=== PATIENT | male | born 1935 | race Caucasian/White ===

== ENCOUNTER 2017-05-10 14:22 | Inpatient (IN) | payer MEDICARE ==
[~2017-05-10] VITALS: Ht 170.2 cm; Wt 80.2 kg
[2017-05-10] MEDS ORDERED: ASPIRIN 325 MG TABLET ONE (14:59)
[2017-05-10] MEDS ORDERED: FUROSEMIDE 10 MG/ML 4ML VIAL ONE (15:00)
[2017-05-10 15:16] LABS: BASOPHILS % (AUTO) 0.4 % (0.0-5.0); EOSINOPHILS % (AUTO) 7.6 % (0.0-8.0); HEMATOCRIT 34.8 % (42-54); LYMPHOCYTES % (AUTO) 12.6 % (21.0-51.0); MEAN CORPUSCULAR HEMOGLOBIN 30.6 pg (27.0-33.0); MEAN CORPUSCULAR HGB CONC 33.5 g/dL (32.0-36.0); MEAN CORPUSCULAR VOLUME 91.1 fL (79-99); MONOCYTES % (AUTO) 4.1 % (3.0-13.0); NEUTROPHILS % (AUTO) 75.3 % (40.0-77.0); PLATELET COUNT (AUTO) 221 K/uL (130-400); RED BLOOD CELL COUNT(AUTO) 3.82 MIL/uL (4.50-6.20); RED CELL DISTRIBUTION WIDTH 14.2 % (11.0-15.5); WHITE BLOOD COUNT (AUTO) 12.3 K/uL (4.8-10.8)
[2017-05-10 15:31] LABS: POTASSIUM 4.9 mmol/L (3.5-5.1)
[2017-05-10 15:32] LABS: INR 1.07 (0.85-1.15); PARTIAL THROMBOPLASTIN TIME 28.9 SEC (26.3-35.5); PROTHROMBIN TIME 11.2 SEC (9.6-11.6)
[2017-05-10 15:40] LABS: B-TYPE NATRIURETIC PEPTIDE 1220 pg/mL (0-100)
[2017-05-10 15:49] LABS: ALBUMIN 3.5 g/dL (3.5-5.0); BILIRUBIN,TOTAL 0.9 mg/dL (0.2-1.0); CREATINE KINASE MB 1.7 ng/mL (0.5-3.6); TOTAL PROTEIN, SERUM 7.2 g/dL (6.0-8.3)
[2017-05-10] MEDS ORDERED: INSULIN HUMULIN R 100 UNIT/ML 3ML ONE (16:16)
[2017-05-10 17:12] LABS: ABG BASE EXCESS 1.6 mmol/L (-2.0-3.0); ABG HCO3 25.7 mmol/L (21.0-28.0); ABG OXYGEN SATURATION 96.5 % (95.0-99.0); ABG PCO2 39 mmHg (35-48)
[2017-05-10 21:00] VITALS: BP 151/105
[2017-05-10 23:00] VITALS: BP 150/109
[2017-05-10] MEDS ORDERED: NITROGLYCERIN 0.4 MG SL TAB SL PRN (23:00)
[2017-05-10] MEDS ORDERED: ACETAMINOPHEN 325 MG TAB PO PRN ×2 (23:00)
[2017-05-10] MEDS ORDERED: ONDANSETRON HCL 4 MG/2 ML VIAL IV PRN (23:00)
[2017-05-10] MEDS ORDERED: LACTULOSE 20 GM/30 ML UDCUP PO PRN (23:00)
[2017-05-10] MEDS ORDERED: CEFTRIAXONE 1GM/D5W 50ML 50 ML IV SCH (23:00)
[2017-05-10] MEDS ORDERED: DEXTROSE 50%-WATER 50 ML DISP.SYRIN IV PRN (23:00)
[2017-05-10] MEDS ORDERED: DILTIAZEM 125MG+100 ML NS 125 ML IV SCH (23:00)
[2017-05-10] MEDS ORDERED: GLUCAGON 1MG KIT 1 MG ML IM PRN (23:00)
[2017-05-10] MEDS ORDERED: HYDRALAZINE HCL 20 MG/ML VIAL IV PRN (23:00)
[2017-05-10] MEDS: DILTIAZEM HCL 5 MG/ML 5 ML VIAL IVP SCH (23:00)
[2017-05-10] MEDS ORDERED: GUAIFENESIN-DM 200/20 MG 10 ML PO PRN (23:00)
[2017-05-10] MEDS ORDERED: CEFTRIAXONE SODIUM 1 GM ONE (23:27)
[2017-05-10 23:48] LABS: CREATINE KINASE MB 1.3 ng/mL (0.5-3.6); TROPONIN I 0.04 ng/mL (0.00-0.06)
[2017-05-10] MEDS ORDERED: AZITHROMYCIN 500MG+NS 250ML 250 ML IV ONE (23:54)
[2017-05-11] MEDS: NITROGLYCERIN 1GM/1 INCH PACKET TD SCH ×4 (01:28→23:48)
[2017-05-11 03:00] VITALS: BP 139/71
[2017-05-11 04:25] LABS: CREATINE KINASE MB 1.4 ng/mL (0.5-3.6); CREATINE KINASE, TOTAL 42 U/L (21-232); MYOGLOBIN 115 ng/mL (10-92); TROPONIN I < 0.04 ng/mL (0.00-0.06)
[2017-05-11] MEDS: INSULIN HUMULIN R 100 UNIT/ML 3ML SQ SCH ×4 (06:39→19:09)
[2017-05-11] MEDS: IPRATROPIUM/ALBUTEROL SULFATE 3 ML SOLUTION IH SCH ×3 (06:51→18:44)
[2017-05-11 07:52] VITALS: BP 127/94
[2017-05-11] MEDS ORDERED: ASPIRIN 325 MG TABLET PO SCH (09:00)
[2017-05-11] MEDS ORDERED: ENOXAPARIN SODIUM 30 MG/0.3 ML SQ SCH (09:00)
[2017-05-11] MEDS ORDERED: FUROSEMIDE 10 MG/ML 4ML VIAL IVP SCH (09:00)
[2017-05-11] MEDS ORDERED: ASPI-555 PO (09:37)
[2017-05-11] MEDS ORDERED: TRAM50TA4 PO (09:37)
[2017-05-11] MEDS ORDERED: SIMV10TA6 PO (09:37)
[2017-05-11] MEDS ORDERED: CLON0.5T4 PO (09:37)
[2017-05-11] MEDS ORDERED: TEMA15CA PO (09:37)
[2017-05-11] MEDS ORDERED: APIX2.5T PO (09:37)
[2017-05-11] MEDS ORDERED: FURO40TA7 PO (09:37)
[2017-05-11] MEDS ORDERED: CETI-101 PO (09:37)
[2017-05-11] MEDS ORDERED: INSLAN SQ ×2 (09:37)
[2017-05-11] MEDS ORDERED: CALC0.253 PO (09:37)
[2017-05-11] MEDS ORDERED: CARV25TA PO (09:37)
[2017-05-11] MEDS ORDERED: POLY17PO4 PO (09:37)
[2017-05-11] MEDS: FAMOTIDINE 20MG TAB 20 MG TAB PO SCH (09:38)
[2017-05-11] MEDS ORDERED: MORPHINE SULFATE 4 MG/1ML SYG IV PRN (10:00)
[2017-05-11] MEDS ORDERED: PHARMACY COMMUNICATION MISC SCH (10:00)
[2017-05-11 11:21] LABS: APPEARANCE,URINE Clear (CLEAR); BILIRUBIN,URINE Negative (NEGATIVE); COLOR,URINE Yellow (YELLOW); GLUCOSE, URINE (UA) 500 mg/dL (NEGATIVE); KETONES,URINE Negative (NEGATIVE); LEUKOCYTE ESTERASE ,URINE Negative (NEGATIVE); NITRATE,URINE Negative (NEGATIVE); OCCULT BLOOD,URINE Negative (NEGATIVE); PROTEIN,URINE POS 1+ (NEGATIVE); UROBILINOGEN,URINE 0.2 mg/dL (0.2-1.0)
[2017-05-11 11:26] LABS: PROTEIN,URINE RANDOM 43.2 mg/dL (0-11.9)
[2017-05-11] MEDS ORDERED: BUMETANIDE 0.25 MG/ML 10 ML 40 ML IV SCH (11:30)
[2017-05-11 12:00] VITALS: BP 118/69
[2017-05-11 12:03] LABS: RBC,URINE None Seen /HPF (0-1); WBC,URINE None Seen /HPF (0-1)
[2017-05-11 12:04] LABS: BACTERIA,URINE None Seen /HPF (None Seen); SQUAMOUS EPITHELIAL CELL,UR None Seen /LPF (0-2)
[2017-05-11] MEDS: MILRINONE-D5W 20 MG/100 ML 100 ML IV SCH (12:39)
[2017-05-11] MEDS: BUMETANIDE 0.25 MG/ML 10 ML 40 ML IV SCH ×2 (13:00→21:09)
[2017-05-11] MEDS ORDERED: POLYETHYLENE GLYCOL 3350 17 GM POWD.PACK ONE (15:21)
[2017-05-11] MEDS: CARVEDILOL 25 MG TABLET PO SCH ×2 (15:28→21:00)
[2017-05-11 17:04] VITALS: BP 120/57
[2017-05-11 20:17] VITALS: BP 111/71
[2017-05-11] MEDS: TEMAZEPAM 15 MG CAPSULE PO SCH (21:00)
[2017-05-11] MEDS: DILTIAZEM HCL 5 MG/ML 5 ML VIAL IVP SCH (21:25)
[2017-05-11] MEDS: APIXABAN 2.5 MG TABLET PO SCH (21:27)
[2017-05-11] MEDS: ATORVASTATIN CALCIUM 10 MG TABLET PO SCH (21:27)
[2017-05-11] MEDS: CLONAZEPAM 0.5 MG TABLET PO SCH (21:28)
[2017-05-11] MEDS: AZITHROMYCIN 500MG+NS 250ML 250 ML IV SCH ×2 (23:46)
[2017-05-11] MEDS: CEFTRIAXONE SODIUM 1 GM IVP SCH ×2 (23:47)
[2017-05-11 23:48] VITALS: BP 116/71
[2017-05-12] MEDS: IPRATROPIUM/ALBUTEROL SULFATE 3 ML SOLUTION IH SCH ×5 (00:28→23:34)
[2017-05-12] MEDS: MILRINONE-D5W 20 MG/100 ML 100 ML IV SCH ×2 (02:27→22:41)
[2017-05-12 03:59] VITALS: BP 115/78
[2017-05-12 04:30] LABS: HEMATOCRIT 28.2 % (42-54); MEAN CORPUSCULAR HEMOGLOBIN 31.3 pg (27.0-33.0); MEAN CORPUSCULAR HGB CONC 34.7 g/dL (32.0-36.0); MEAN CORPUSCULAR VOLUME 90.2 fL (79-99); PLATELET COUNT (AUTO) 216 K/uL (130-400); RED BLOOD CELL COUNT(AUTO) 3.13 MIL/uL (4.50-6.20); RED CELL DISTRIBUTION WIDTH 14.2 % (11.0-15.5); WHITE BLOOD COUNT (AUTO) 12.1 K/uL (4.8-10.8)
[2017-05-12 04:45] LABS: CREATININE 3.2 mg/dL (0.5-1.5); POTASSIUM 3.6 mmol/L (3.5-5.1)
[2017-05-12 04:54] LABS: B-TYPE NATRIURETIC PEPTIDE 614 pg/mL (0-100)
[2017-05-12] MEDS: INSULIN HUMULIN R 100 UNIT/ML 3ML SQ SCH ×4 (06:21→21:26)
[2017-05-12] MEDS: NITROGLYCERIN 1GM/1 INCH PACKET TD SCH ×3 (06:25→22:41)
[2017-05-12] MEDS: BUMETANIDE 0.25 MG/ML 10 ML 40 ML IV SCH (06:30)
[2017-05-12 07:00] VITALS: BP 107/67
[2017-05-12] MEDS: FAMOTIDINE 20MG TAB 20 MG TAB PO SCH (08:56)
[2017-05-12] MEDS: POLYETHYLENE GLYCOL 3350 17 GM POWD.PACK PO SCH (08:56)
[2017-05-12] MEDS: APIXABAN 2.5 MG TABLET PO SCH ×2 (08:56→21:20)
[2017-05-12] MEDS: CARVEDILOL 25 MG TABLET PO SCH (08:58)
[2017-05-12] MEDS: CLONAZEPAM 0.5 MG TABLET PO SCH ×2 (09:00→21:20)
[2017-05-12] MEDS ORDERED: BUMETANIDE 0.25 MG/ML 4 ML VIAL IVP SCH (09:00)
[2017-05-12 11:00] VITALS: BP 118/51
[2017-05-12] MEDS: HYDRALAZINE HCL 10 MG TABLET PO SCH ×2 (14:05→21:20)
[2017-05-12 16:00] VITALS: BP 122/46
[2017-05-12 19:40] VITALS: BP 125/72
[2017-05-12] MEDS: ATORVASTATIN CALCIUM 10 MG TABLET PO SCH (21:20)
[2017-05-12] MEDS: TEMAZEPAM 15 MG CAPSULE PO SCH (21:20)
[2017-05-12] MEDS: CARVEDILOL 12.5 MG TABLET PO SCH (21:21)
[2017-05-12] MEDS: DILTIAZEM HCL 5 MG/ML 5 ML VIAL IVP SCH (22:39)
[2017-05-12 23:23] VITALS: BP 116/56
[2017-05-12] MEDS: AZITHROMYCIN 500MG+NS 250ML 250 ML IV SCH (23:58)
[2017-05-12] MEDS: CEFTRIAXONE SODIUM 1 GM IVP SCH (23:58)
[2017-05-13] MEDS ORDERED: MORPHINE SULFATE 2 MG/ML 1ML SYG ONE (01:53)
[2017-05-13 03:59] VITALS: BP 97/60
[2017-05-13 04:19] LABS: HEMATOCRIT 25.8 % (42-54); MEAN CORPUSCULAR HGB CONC 36.7 g/dL (32.0-36.0); PLATELET COUNT (AUTO) 192 K/uL (130-400); RED BLOOD CELL COUNT(AUTO) 2.86 MIL/uL (4.50-6.20); RED CELL DISTRIBUTION WIDTH 13.9 % (11.0-15.5); WHITE BLOOD COUNT (AUTO) 10.4 K/uL (4.8-10.8)
[2017-05-13 04:28] LABS: CREATININE 3.7 mg/dL (0.5-1.5)
[2017-05-13] MEDS: IPRATROPIUM/ALBUTEROL SULFATE 3 ML SOLUTION IH SCH ×3 (05:10→19:43)
[2017-05-13] MEDS: NITROGLYCERIN 1GM/1 INCH PACKET TD SCH ×3 (06:44→19:19)
[2017-05-13] MEDS: INSULIN HUMULIN R 100 UNIT/ML 3ML SQ SCH ×4 (06:46→21:23)
[2017-05-13 07:00] VITALS: BP 133/61
[2017-05-13] MEDS: APIXABAN 2.5 MG TABLET PO SCH ×2 (08:35→21:16)
[2017-05-13] MEDS: FAMOTIDINE 20MG TAB 20 MG TAB PO SCH (08:35)
[2017-05-13] MEDS: CARVEDILOL 12.5 MG TABLET PO SCH ×2 (08:36→21:17)
[2017-05-13] MEDS: ISOSORBIDE MONO 30MG TAB SR PO SCH (08:36)
[2017-05-13] MEDS: HYDRALAZINE HCL 10 MG TABLET PO SCH ×3 (08:37→21:17)
[2017-05-13] MEDS: POLYETHYLENE GLYCOL 3350 17 GM POWD.PACK PO SCH (08:37)
[2017-05-13] MEDS: CLONAZEPAM 0.5 MG TABLET PO SCH ×2 (08:47→21:17)
[2017-05-13] MEDS ORDERED: FURO40TA7 PO (10:17)
[2017-05-13] MEDS ORDERED: Isosorbide Mono 30MG Tab Sr PO (10:17)
[2017-05-13] MEDS ORDERED: HYDR-3420 PO (10:17)
[2017-05-13 11:00] VITALS: BP 128/79
[2017-05-13 16:00] VITALS: BP 135/66
[2017-05-13 19:32] VITALS: BP 123/76
[2017-05-13] MEDS: ATORVASTATIN CALCIUM 10 MG TABLET PO SCH (21:18)
[2017-05-13] MEDS: TEMAZEPAM 15 MG CAPSULE PO SCH (21:18)
[2017-05-13] MEDS: INSULIN GLARGINE 100 UNITS/ML 10 ML VIAL SQ SCH (21:24)
[2017-05-13] MEDS: DILTIAZEM HCL 5 MG/ML 5 ML VIAL IVP SCH (23:00)
[2017-05-13 23:54] VITALS: BP 107/73
[2017-05-14] MEDS: AZITHROMYCIN 500MG+NS 250ML 250 ML IV SCH (00:08)
[2017-05-14] MEDS: CEFTRIAXONE SODIUM 1 GM IVP SCH (00:08)
[2017-05-14] MEDS: IPRATROPIUM/ALBUTEROL SULFATE 3 ML SOLUTION IH SCH ×3 (00:23→11:10)
[2017-05-14] MEDS: NITROGLYCERIN 1GM/1 INCH PACKET TD SCH ×2 (02:54→10:45)
[2017-05-14 03:49] VITALS: BP 121/78
[2017-05-14 04:06] LABS: HEMATOCRIT 27.9 % (42-54); MEAN CORPUSCULAR HEMOGLOBIN 31.2 pg (27.0-33.0); MEAN CORPUSCULAR HGB CONC 34.7 g/dL (32.0-36.0); PLATELET COUNT (AUTO) 210 K/uL (130-400); RED CELL DISTRIBUTION WIDTH 13.8 % (11.0-15.5); WHITE BLOOD COUNT (AUTO) 11.6 K/uL (4.8-10.8)
[2017-05-14 04:27] LABS: CREATININE 3.8 mg/dL (0.5-1.5); POTASSIUM 3.6 mmol/L (3.5-5.1)
[2017-05-14] MEDS ORDERED: PHARMACY COMMUNICATION MISC SCH (06:00)
[2017-05-14] MEDS: INSULIN HUMULIN R 100 UNIT/ML 3ML SQ SCH ×2 (06:40→12:34)
[2017-05-14] MEDS: BUMETANIDE 0.25 MG/ML 10 ML 40 ML IV SCH (06:40)
[2017-05-14] MEDS: INSULIN GLARGINE 100 UNITS/ML 10 ML VIAL SQ SCH (06:40)
[2017-05-14 07:00] VITALS: BP 132/72
[2017-05-14] MEDS: APIXABAN 2.5 MG TABLET PO SCH (10:06)
[2017-05-14] MEDS: ISOSORBIDE MONO 30MG TAB SR PO SCH (10:07)
[2017-05-14] MEDS: CLONAZEPAM 0.5 MG TABLET PO SCH (10:07)
[2017-05-14] MEDS: CARVEDILOL 12.5 MG TABLET PO SCH (10:07)
[2017-05-14] MEDS: POLYETHYLENE GLYCOL 3350 17 GM POWD.PACK PO SCH (10:07)
[2017-05-14] MEDS: HYDRALAZINE HCL 10 MG TABLET PO SCH (10:08)
[2017-05-14] MEDS: FAMOTIDINE 20MG TAB 20 MG TAB PO SCH (10:08)
[2017-05-14 11:00] VITALS: BP 133/65
== END 2017-05-14 12:50 | disposition home or self-care (01) | DRG 291 ==
LOC: EDH 14:22 → EDHIP 16:45 → OBSVTOIN 16:45 → 2AH 20:13
PROVIDERS: ADMIT Internal Medicine; ATTEND Internal Medicine
DX: I13.0 Hypertensive heart and chronic kidney disease with heart failure and stage 1 through stage 4 chronic kidney disease, or unspecified chronic kidney disease (principal); I50.23 Acute on chronic systolic (congestive) heart failure; J96.00 Acute respiratory failure, unspecified whether with hypoxia or hypercapnia; J18.9 Pneumonia, unspecified organism; D68.69 Other thrombophilia; E11.22 Type 2 diabetes mellitus with diabetic chronic kidney disease; N18.4 Chronic kidney disease, stage 4 (severe); N17.9 Acute kidney failure, unspecified; F13.20 Sedative, hypnotic or anxiolytic dependence, uncomplicated; I48.2 Chronic atrial fibrillation; I51.3 Intracardiac thrombosis, not elsewhere classified; J44.0 Chronic obstructive pulmonary disease with (acute) lower respiratory infection; C18.9 Malignant neoplasm of colon, unspecified; I45.2 Bifascicular block; I25.5 Ischemic cardiomyopathy; I25.10 Atherosclerotic heart disease of native coronary artery without angina pectoris; I44.7 Left bundle-branch block, unspecified; E78.5 Hyperlipidemia, unspecified; I65.23 Occlusion and stenosis of bilateral carotid arteries; F41.9 Anxiety disorder, unspecified; Z79.899 Other long term (current) drug therapy; Z79.01 Long term (current) use of anticoagulants; Z82.49 Family history of ischemic heart disease and other diseases of the circulatory system; Z85.038 Personal history of other malignant neoplasm of large intestine; Z86.73 Personal history of transient ischemic attack (TIA), and cerebral infarction without residual deficits; Z90.49 Acquired absence of other specified parts of digestive tract; Z95.1 Presence of aortocoronary bypass graft; Z98.41 Cataract extraction status, right eye
CPT/HCPCS: 36415; 36600; 71045; 71046; 71250; 76770; 78580; 80048; 80053; 81001; 82550; 82553; 82570; 82803; 82948; 83874; 83880; 84156; 84300; 84484; 85025; 85027; 85378; 85610; 85730; 87804; 93005; 93306; 93880; 93970; 94640; 94660; 94664; 99291; A4218; A9540; J0456; J0696; J1650; J1815; J1940; J2260; J3490

== ENCOUNTER 2018-04-22 18:04 | Emergency (ER) | payer MEDICARE ==
[~2018-04-22 18:04] MED LIST: APIX2.5T PO; CALC0.253 PO; CARV25TA PO; CETI-101 PO; CLON0.5T12 PO; FURO40TA7 PO; HYDR-3420 PO; INSLAN SQ; Isosorbide Mono 30MG Tab Sr PO; POLY17PO4 PO; SIMV10TA6 PO; TEMA15CA PO; TRAM50TA4 PO
[2018-04-22] MEDS ORDERED: OXYMETAZOLINE HCL SPRAY 15 ML BOTTLE ONE (19:10)
[2018-04-22] MEDS ORDERED: GUAIFENESIN SUGAR-FREE 100 MG/5 ML UDCUP ONE (19:10)
[2018-04-22] MEDS ORDERED: DEXAMETHASONE SOD PHOSPHATE 10MG/ML 1ML VIAL ONE (19:21)
[2018-04-22 19:26] LABS: BASOPHILS % (AUTO) 0.7 % (0.0-5.0); EOSINOPHILS % (AUTO) 8.2 % (0.0-8.0); HEMATOCRIT 32.5 % (42-54); LYMPHOCYTES % (AUTO) 18.4 % (21.0-51.0); MEAN CORPUSCULAR HGB CONC 33.2 g/dL (32.0-36.0); MEAN CORPUSCULAR VOLUME 93.5 fL (79-99); MONOCYTES % (AUTO) 5.2 % (3.0-13.0); NEUTROPHILS % (AUTO) 67.5 % (40.0-77.0); PLATELET COUNT (AUTO) 266 K/uL (130-400); RED BLOOD CELL COUNT(AUTO) 3.48 MIL/uL (4.50-6.20); WHITE BLOOD COUNT (AUTO) 11.2 K/uL (4.8-10.8)
[2018-04-22 19:41] LABS: ALBUMIN 3.9 g/dL (3.5-5.0); BILIRUBIN,TOTAL 0.6 mg/dL (0.2-1.0); CREATININE 3.9 mg/dL (0.5-1.5); POTASSIUM 4.5 mmol/L (3.5-5.1); TOTAL PROTEIN, SERUM 8.1 g/dL (6.0-8.3)
[2018-04-22 19:52] LABS: B-TYPE NATRIURETIC PEPTIDE 1100 pg/mL (0-100)
== END 2018-04-22 20:23 | disposition home or self-care (01) ==
LOC: EDH 18:04
DX: J20.9 Acute bronchitis, unspecified (principal); J45.909 Unspecified asthma, uncomplicated; E11.9 Type 2 diabetes mellitus without complications; I50.9 Heart failure, unspecified; I25.10 Atherosclerotic heart disease of native coronary artery without angina pectoris; Z88.8 Allergy status to other drugs, medicaments and biological substances
CPT/HCPCS: 36415; 71046; 80053; 83880; 85025; 96372; 99284; J1100

== ENCOUNTER 2018-06-16 17:33 | Emergency (ER) | payer MEDICARE ==
[2018-06-16 18:03] LABS: BASOPHILS % (AUTO) 0.9 % (0.0-5.0); EOSINOPHILS % (AUTO) 8.9 % (0.0-8.0); HEMATOCRIT 31.3 % (42-54); LYMPHOCYTES % (AUTO) 23.9 % (21.0-51.0); MEAN CORPUSCULAR HEMOGLOBIN 31.8 pg (27.0-33.0); MEAN CORPUSCULAR VOLUME 93.5 fL (79-99); MONOCYTES % (AUTO) 6.8 % (3.0-13.0); NEUTROPHILS % (AUTO) 59.5 % (40.0-77.0); NUCLEATED RED BLOOD CELLS 0.1 % (0.0-0.19); PLATELET COUNT (AUTO) 212 K/uL (130-400); RED BLOOD CELL COUNT(AUTO) 3.35 MIL/uL (4.50-6.20); WHITE BLOOD COUNT (AUTO) 8.4 K/uL (4.8-10.8)
[2018-06-16 18:19] LABS: ALBUMIN 3.6 g/dL (3.5-5.0); BILIRUBIN,TOTAL 0.3 mg/dL (0.2-1.0); CREATININE 3.4 mg/dL (0.5-1.5); POTASSIUM 4.6 mmol/L (3.5-5.1); TOTAL PROTEIN, SERUM 7.3 g/dL (6.0-8.3)
[2018-06-16] MEDS ORDERED: INSULIN HUMULIN R 100 UNIT/ML 3ML ONE (18:31)
== END 2018-06-16 20:01 | disposition home or self-care (01) ==
LOC: EDH 17:33
DX: E10.65 Type 1 diabetes mellitus with hyperglycemia (principal); N19 Unspecified kidney failure; J45.909 Unspecified asthma, uncomplicated; I25.10 Atherosclerotic heart disease of native coronary artery without angina pectoris; I50.9 Heart failure, unspecified; Z88.8 Allergy status to other drugs, medicaments and biological substances; Z79.4 Long term (current) use of insulin
CPT/HCPCS: 36415; 71045; 80053; 82948; 84484; 85025; 93005; 96374; 99284; J1815